=== PATIENT | female | born 1985 | race Caucasian/White ===

== ENCOUNTER 2016-12-14 18:30 | Emergency (ER) ==
[2016-12-14 18:38] VITALS: BP 119/83; TEMP 99.2; BMI 28.1
[2016-12-14] MEDS ORDERED: GI COCKTAIL PO STA (18:45)
[2016-12-14] MEDS ORDERED: PROTONIX PO STA (18:45)
--- NOTE | 2016-12-14 18:48 | ED.PDOC ---
General ED Provider: Dr. ALEN IBANEZ-ER Chief Complaint: Abdominal Pain Stated Complaint: i have reflux--it pham into my throat--worse with swallowing stuff Time Seen by Physician: 18:47 Mode of Arrival: Walk-In Information Source: Patient Exam Limitations: No limitations Nursing and Triage Documentation Reviewed and Agree: Yes GI Complaint Exam - Abdominal Pain Complaint/Exam Onset: Gradual Duration: 3 weeks Symptoms Are: Still present Timing: Intermittent Initial Severity: Mild Current Severity: Moderate Location of Pain: Epigastric Character: Reports: Burning Aggravating: Reports: Food, Eating Alleviating: Reports: Spontaneous resolution Associated Signs and Symptoms: Reports: Cough. Denies: Diaphoresis, Fever, Chest pain, Dizziness, Back pain, Constipation, Blood in stool, Dysuria, Urinary frequency, Decreased urine output, Decreased appetite, Vaginal bleeding , Vaginal discharge, Nausea, Vomiting, Diarrhea, Sore throat, Decreased activity AAA Risk Factors: Reports: None Cardiac Risk Factors: Reports: None Ectopic Risk Factors: Reports: None Ovarian Torsion Risk Factors: Reports: Reproductive age Surgical Obstruction Risk Factors: Reports: None Related Surgical History: Reports: None Patient Rh Status: Unknown Abdominal Findings: Present: None Differential Diagnoses: Other (gerd) Review of Systems - Review Of Systems Constitutional: Reports: No symptoms Eyes: Reports: No symptoms Ears, Nose, Mouth, Throat: Reports: No symptoms Respiratory: Reports: No symptoms Cardiac: Reports: No symptoms GI: Reports: No symptoms : Reports: No symptoms Musculoskeletal: Reports: No symptoms Skin: Reports: No symptoms Neurological: Reports: No symptoms Endocrine: Reports: No symptoms Hematologic/Lymphatic: Reports: No symptoms All Other Systems: Reviewed and Negative Past Medical History - Past Medical History Previously Healthy: Yes Endocrine: Reports: None Cardiovascular: Reports: None Respiratory: Reports: None Hematological: Reports: None Gastrointestinal: Reports: None Genitourinary: Reports: None Neuro/Psych: Reports: None Musculoskeletal: Reports: None Cancer: Reports: None Last Menstrual Period: last week - Surgical History General Surgical History: Reports: Unknown - Family History Family History: Reports: Unknown - Social History Smoking Status: Never smoker Hx Substance Use: No Alcohol Screening: None Physical Exam - Physical Exam Appearance: Well-appearing, No pain distress, Well-nourished Pain Distress: Mild Eyes: ADRIEL, EOMI, Conjunctiva clear ENT: Ears normal, Nose normal, Oropharynx normal Neck: Supple Respiratory: Airway patent, Breath sounds clear, Breath sounds equal, Respirations nonlabored Cardiovascular: RRR, Pulses normal, No rub, No murmur GI/: Soft, Nontender, No masses, Bowel sounds normal, No Organomegaly Musculoskeletal: Normal strength, ROM intact, No edema, No calf tenderness Skin: Warm, Dry, Normal color Neurological: Sensation intact, Motor intact, Reflexes intact, Cranial nerves intact, Alert, Oriented Psychiatric: Affect appropriate, Mood appropriate Re-Evaluation - Re-Evaluation Time of Re-Evaluation: 19:01 Status: Improved Vital Signs Stable: Yes Pain Level: 0 Appearance: NAD Lungs: Clear Skin: Warm and Dry Neuro: Alert and Oriented X3 CV: RRR Critical Care Note - Critical Care Note Total Time (mins): 0 Course - Course Orders, Labs, Meds: Orders Category Date Time Status Mag-Al Plus//Lidocaine [Gi Cocktail] MEDS 12/14/16 18:45 Discontinued 30 ml PO ONCE STA Pantoprazole Sodium [Protonix] MEDS 12/14/16 18:45 Discontinued 40 mg PO ONCE STA Medications Discontinued Medications Generic Name Dose Route Start Last Admin Trade Name Freq PRN Reason Stop Dose Admin Al Hydroxide/Mg Hydroxide 30 ml 12/14/16 18:45 12/14/16 18:53 Gi Cocktail PO 12/14/16 18:46 30 ml ONCE STA Administration Pantoprazole Sodium 40 mg 12/14/16 18:45 12/14/16 18:52 Protonix PO 12/14/16 18:46 40 mg ONCE STA Administration Vital Signs: Temp Pulse Resp BP Pulse Ox 12/14/16 18:33 99.2 F 86 20 119/83 99 Departure - Departure Time of Disposition: 19:01 Disposition: HOME SELF-CARE Discharge Problem: GERD (gastroesophageal reflux disease) Qualifiers: Esophagitis presence: without esophagitis Qualifier Code: (K21.9) Gastro- esophageal reflux disease without esophagitis Instructions: Gastroesophageal Reflux Disease (ED) Condition: Good Pt referred to PMD for follow-up: Yes Additional Instructions: zantac 150mg bid #30--carafate 1grm bid #30--avoid caffeine--elevated hob--f.u in clinic please Allergies/Adverse Reactions: Allergies No Known Allergies Allergy (Verified 12/14/16 18:40) Home Medications: Ambulatory Orders 1 [No Reported Medications] 12/14/16 Disposition Discussed With: Patient, Family
== END 2016-12-14 19:05 | disposition home or self-care (01) ==
LOC: ED 18:30
DX: K21.9 Gastro-esophageal reflux disease without esophagitis (principal)
CPT/HCPCS: 99282